=== PATIENT | male | born 1990 | race Two or more races ===

== ENCOUNTER 2016-10-07 15:42 | Observation (INO) | payer SELFPAY ==
[~2016-10-07] VITALS: Ht 165.1 cm; Wt 61.7 kg
--- NOTE | ~2016-10-07 | HP ---
Unit #: [id number] #: [id number] Patient: NIDA NAZARIO [id number] [address] [place], [place] [address] [id number] MR#: [id number] NAME: NIDA NAZARIO ROOM: 461 Age: 26 Sex: M Admission Date: 10/07/2016 : 1990 Attending Physician: Veto Stewart III, M.D. Primary Care Physician: No Primary Care Physician HISTORY AND PHYSICAL CHIEF COMPLAINT Abdominal pain. HISTORY OF PRESENT ILLNESS This is a 26-year-old, gentleman whose history was obtained from truck hop phone. He has a 2-day history of periumbilical pain that initially was fairly severe and rated as an 8 out of 10 and has improved overnight. He says he has just a little bit of pain that he describes as a 4 out of 10. He denies any nausea, vomiting, and is currently hungry. He also denies any ill contacts or food poisoning. PAST MEDICAL HISTORY Negative. PAST SURGICAL HISTORY Negative. MEDICATIONS He is on no medications. ALLERGIES He has no known drug allergies. SOCIAL HISTORY He has a history of tobacco use, but does not smoke anymore. He drinks several beers per day. FAMILY HISTORY Significant for grandmother who had some unknown type of cancer. REVIEW OF SYSTEMS Negative for weight loss or jaundice. PHYSICAL EXAMINATION VITAL SIGNS: Temperature is 98.1, heart rate 72, respiratory rate is 20, blood pressure is 117/73. GENERAL APPEARANCE: He is in no acute distress. HEENT: Pupils are equal and reactive to light and accommodation. His extraocular muscles are intact. NECK: Without masses or bruits. LUNGS: Show good breath sounds bilaterally with equal air exchange. CARDIAC: Shows regular rate and rhythm without murmur. ABDOMEN: Soft and nondistended. He has no focal tenderness and there is just some mild nondescript trace tenderness throughout the abdomen. Unit #: [id number] #: [id number] Patient: NIDA NAZARIO EXTREMITIES: Without edema or cyanosis. NEUROLOGIC: He is alert and oriented. There are no focal deficits. DIAGNOSTIC STUDIES LABORATORY: White blood count was 12,000 at [facility] and is currently 9000. IMAGING: CT scan done at [place] showed by report just a dilated appendix with no inflammation. OVERALL IMPRESSION This is a gentleman who has either enteritis or very early appendicitis. We discussed the options of observation with antibiotics versus another day in the hospital on IV antibiotics versus diagnostic laparoscopy with concurrent laparoscopic appendectomy. He wants to go home. He understands that if his symptoms return, he is to return to the hospital for possible surgery. I am going to send him home on Levaquin. I told him we would not send him home on pain medicine because I did not want that to mask any evolving processes. Dictated by Veto Stewart III, M.D. VCL/lorena TD: 10/08/2016 07:13 JOB #: [id number] HISTORY AND PHYSICAL Page 1 of 1 X Veto Stewart III, MD HISTORY AND PHYSICAL
[2016-10-08 04:12] LABS: HEMATOCRIT 42.7 % (38.0-50.0); HEMOGLOBIN 14.1 gm/dL (13.0-16.0); MEAN CELL VOLUME 85.4 FL (83-96); MEAN CORPUSCULAR HEMOGLOBIN 28.1 PG (28-34); MEAN CORPUSCULAR HGB CONC 32.9 g/dL (30-36); MEAN PLATELET VOLUME 9.5 FL (6.5-11.5); RED CELL DISTRIBUTION WIDTH 13.2 % (11.0-15.5); WHITE BLOOD COUNT 9.1 X10e3 (4.0-10.5)
[2016-10-08] MEDS ORDERED: LEVAQUIN PO (08:01)
== END 2016-10-08 09:45 | disposition home or self-care (01) | DRG 392 ==
LOC: C4C 19:18 → UNDOADMOB 19:18 → CEDOF 19:18 → C4C 19:39 → CEDOF 19:39 → C4C 19:39 → CEDOF 20:00 → UNDOADMOB 20:00 → C4C 20:00
PROVIDERS: Surgery
DX: R10.33 Periumbilical pain (principal); Z87.891 Personal history of nicotine dependence
CPT/HCPCS: 85027; 96374; 96375; 96376; G0378; J2270; J2543